=== PATIENT | female | born 2000 | race Hispanic/Latino ===

== ENCOUNTER → 2020-05-31 | Outpatient (CLI) | payer BC, OTHER | LOC: INF 08:26 | PROVIDERS: ATTEND Internal Medicine | DX: Z23 Encounter for immunization (principal) | CPT/HCPCS: 96372 ==

== ENCOUNTER 2020-06-24 08:45 | Outpatient (CLI) | payer BC, OTHER | END 2020-06-24 23:59 | disposition home or self-care (01) | LOC: INF 08:45 | PROVIDERS: ATTEND Internal Medicine | DX: Z23 Encounter for immunization (principal) | CPT/HCPCS: 96372 ==

== ENCOUNTER 2020-11-10 11:14 | Outpatient (CLI) | payer BC, OTHER | END 2020-11-10 21:12 | disposition home or self-care (01) | LOC: LAB 11:14 | PROVIDERS: ATTEND Nurse Practitioner Family | DX: R05 Cough (principal); R51.9 Headache, unspecified; R09.81 Nasal congestion; Z11.52 Encounter for screening for COVID-19 | CPT/HCPCS: 87635; G2023; U0003 ==